=== PATIENT | female | born 2000 | race Caucasian/White ===

== ENCOUNTER → 2021-12-02 | Outpatient (CLI) ==
[~2021-12-02] MED LIST: AMOX500C2 PO; ARIP2TAB20 PO; ARIP2TAB3 PO; AZIT250T12 PO; BUPR-42 PO; CEPH500T PO; CIPR500T5 PO; CYCL10TA25; DOCU-143 PO; DOCU-239 PO; FLUT9.9S NSEACH; HYDR-34 PO; IBUP-1780 PO; MEDR150D6; METF-397 PO; METH4TAB10; MTP25TSR; NITR-65 PO; NITR-68 PO; NITR100C PO; NORG1TAB69 PO; ONDA4TAB11 PO; OXYC1TAB12 PO; OXYC1TAB87 PO; POLY119P5 PO; PRD20T PO; PREN1TAB19 PO; RISP0.5T65; SERT-413; SERT-414; SULF-222; VORT20TA PO
== END ==
LOC: LABNPT 14:21
PROVIDERS: ATTEND Obstetrics & Gynecology
DX: Z01.89 Encounter for other specified special examinations (principal)
CPT/HCPCS: 82570; 84156

== ENCOUNTER 2021-12-14 06:11 | Outpatient (CLI) | payer MEDICAID ==
[~2021-12-14] VITALS: Ht 162.6 cm; Wt 107.0 kg
[2021-12-14 06:20] VITALS: BP 131/75
[2021-12-14 06:30] VITALS: BP 131/75
--- NOTE | 2021-12-16 08:13 | Physician Query-Final Dx ---
Clinic Account Progress/Dx Physician Query: Please give diagnosis Include # weeks gestation Date of Service Dec 14, 2021 at 06:11 HEMAL,MayDec 16, 2021 08:12
== END 2021-12-14 07:13 | disposition home or self-care (01) ==
LOC: LDRP 06:11 → WSo 06:11
PROVIDERS: ATTEND Obstetrics & Gynecology
DX: O42.90 Premature rupture of membranes, unspecified as to length of time between rupture and onset of labor, unspecified weeks of gestation (principal); Z3A.00 Weeks of gestation of pregnancy not specified
CPT/HCPCS: 99213

== ENCOUNTER 2021-12-17 14:19 | Outpatient (CLI) | payer MEDICAID ==
[~2021-12-17] VITALS: Ht 162.6 cm; Wt 106.2 kg
[2021-12-17 14:49] VITALS: BP 105/64
[2021-12-17 14:50] LABS: BILIRUBIN,URINE NEGATIVE (NEGATIVE); CLARITY,URINE CLEAR; COLOR,URINE YELLOW; GLUCOSE, URINE (UA) NEGATIVE (NEGATIVE); KETONES,URINE NEGATIVE (NEGATIVE); LEUKOCYTE ESTERASE ,URINE NEGATIVE (NEGATIVE); NITRITE,URINE NEGATIVE (NEGATIVE); PROTEIN,URINE NEGATIVE (NEGATIVE)
[2021-12-17 15:01] LABS: BACTERIA,URINE MODERATE /HPF
--- NOTE | 2021-12-18 08:42 | Physician Query-Final Dx ---
12/18/21 0842: Clinic Account Progress/Dx Physician Query: Please give diagnosis Please include # weeks gestation Date of Service Dec 17, 2021 at 14:19 KI MCCLAIN MD 12/18/21 1104: Clinic Account Progress/Dx DIAGNOSIS: Diagnosis False labor 28 weeks gestation ,MayDec 18, 2021 08:42 KI MCCLAIN MD Dec 18, 2021 11:04
== END 2021-12-17 16:18 | disposition home or self-care (01) ==
LOC: WSo 14:19 → LDRP 14:23 → WSo 16:18
PROVIDERS: ATTEND Obstetrics & Gynecology
DX: O47.03 False labor before 37 completed weeks of gestation, third trimester (principal); Z3A.28 28 weeks gestation of pregnancy
CPT/HCPCS: 81000; 87088

== ENCOUNTER 2022-01-26 13:04 | Outpatient (CLI) | payer BC, MEDICAID ==
[~2022-01-26] VITALS: Ht 166 cm; Wt 110.7 kg
[2022-01-26 13:38] VITALS: BP 125/60
[2022-01-26 13:40] LABS: BILIRUBIN,URINE NEGATIVE (NEGATIVE); CLARITY,URINE CLEAR; COLOR,URINE YELLOW; GLUCOSE, URINE (UA) NEGATIVE (NEGATIVE); KETONES,URINE NEGATIVE (NEGATIVE); LEUKOCYTE ESTERASE ,URINE TRACE (NEGATIVE); NITRITE,URINE NEGATIVE (NEGATIVE); PH,URINE 7.5 (5-9); PROTEIN,URINE NEGATIVE (NEGATIVE)
[2022-01-26 13:49] LABS: BACTERIA,URINE FEW /HPF; SQUAMOUS EPITHELIAL CELL,UR 0-2 /HPF; WBC,URINE RARE /HPF
[2022-01-26 13:55] VITALS: BP 125/60
[2022-01-26 13:56] VITALS: BP 125/60
[2022-01-26 14:27] VITALS: BP 125/60
[2022-01-26 14:45] VITALS: BP 125/60
--- NOTE | 2022-01-27 08:12 | Physician Query-Final Dx ---
,01/27/22 0812: Clinic Account Progress/Dx Physician Query: Please give diagnosis Please include # weeks gestation Date of Service Jan 26, 2022 at 13:04 KI MCCLAIN MD 01/27/222000: Clinic Account Progress/Dx DIAGNOSIS: Diagnosis 34 weeks with false labor ,MayJan 27, 2022 08:12 KI MCCLAIN MD Jan 27, 2022 20:01
== END 2022-01-26 14:45 | disposition home or self-care (01) ==
LOC: LDRP 13:04 → WSo 13:04
PROVIDERS: ATTEND Obstetrics & Gynecology
DX: O47.03 False labor before 37 completed weeks of gestation, third trimester (principal); Z3A.34 34 weeks gestation of pregnancy
CPT/HCPCS: 81000; 99213

== ENCOUNTER 2022-02-03 12:17 | Emergency (ER) | payer BC, MEDICAID ==
[~2022-02-03] VITALS: Ht 162 cm; Wt 110.2 kg
--- NOTE | 2022-02-03 12:53 | ED Integumentary General ---
General Chief Complaint: Skin/Wound Problems Stated Complaint: CYST ON LOW BACK Nursing Triage Note: PT PRESENTS TO ED VIA POV FROM HOME WITH COMPLAINTS OF POSSIBLE CYST ON TAILBONE. PT REPORTS SHE FIRST NOTICED IT A WEEK AND A HALF AGO. Source: patient Exam Limitations: no limitations History of Present Illness Date Seen by Provider: Feb 03, 2022 Time Seen by Provider: 12:45 Initial Comments Patient is a 21 yo F who presents to the ED with swelling and pain to her gluteal cleft that began 1.5 weeks ago and has progressively worsened since that time. She denies any drainage from the area. Denies any fever. She is 8 months . She has not had any abdominal cramping or vaginal bleeding/drainage. She denies any h/o similar symptoms in the past Timing/Duration: week, getting worse Severity: moderate Allergies and Home Medications Allergies Coded Allergies: cefdinir (Verified Allergy, Intermediate, HIVES, 12/04/21) Patient Home Medication List Home Medication List Reviewed: Yes Amoxicillin/Potassium Clav (Amox Tr-K Clv 875-125 mg Tab) 875 Mg-125 Mg Tablet, 1 EACH PO BID Prescribed by: Murali Keller on 02/03/22 1344 Vit/Iron Fumarate/FA ( Vitamins Tablet) 28 Mg Iron-800 Mcg Tablet, 1 EACH PO DAILY, (Reported) Entered as Reported by: OTIS PRATT on 11/01/21 1124 Review of Systems Review of Systems Constitutional: no symptoms reported EENTM: no symptoms reported Respiratory: no symptoms reported Cardiovascular: no symptoms reported Gastrointestinal: no symptoms reported Expected Date of Delivery: Mar 09, 2022 Musculoskeletal: no symptoms reported Skin: see HPI Past Kaubpbn-Qcullc-Kybgxc Hx Patient Social History Tobacco Use?: No Substance use?: No Alcohol Use?: No Pt feels they are or have been: No Immunizations Up To Date PED Vaccines UTD: Yes First/Initial COVID19 Vaccinat: no Second COVID19 Vaccination Panchito: no Third COVID19 Vaccination Date: no Seasonal Allergies Seasonal Allergies: No Past Medical History Surgery/Hospitalization HX: RIGHT KNEE SCOPEC-section 05/2019, Surgeries: Yes Adenoidectomy, Bladder Surgery, Section, Gallbladder, Orthopedic, Tonsillectomy Respiratory: No Cardiac: No Neurological: No Expected Date of Delivery: Mar 09, 2022 Reproductive Disorders: Yes (DUB) Female Reproductive Disorders: Denies, Menstrual Problems, Polycystic Ovarian Dis Sexually Transmitted Disease: No HIV/AIDS: No Genitourinary: No Gastrointestinal: Yes (S/P CHOLECYSTECTOMY) Gall Bladder Disease Musculoskeletal: Yes (RIGHT KNEE SCOPE) Endocrine: No HEENT: Yes (GLASSES; T&A; ADENOIDECTOMY) Loss of Vision: Denies Hearing Impairment: Denies Cancer: No Psychosocial: Yes Depression Integumentary: No Blood Disorders: No Adverse Reaction/Blood Tranf: No (N/A) Family Medical History No Pertinent Family Hx, Heart Disease, DVT/PE PAST SURGICAL HISTORY: -RIGHT KNEE SCOPE - 05/12/19 -HYSTEROSCOPY WITH D&C FOR DUB--01/06/20 -CHILECYSTECTOMY -TONSILLECTOMY/ADENOIDECTOMY -WISDOM TEETH -URETHRAL DILATION X 2 Physical Exam Vital Signs Vital Signs - First Documented 02/03/22 12:28 Temp 36.7 Pulse 130 Resp 18 B/P (MAP) 133/81 (98) Pulse Ox 97 Capillary Refill : Less Than 3 Seconds General Appearance: WD/WN, no apparent distress HEENT: PERRL/EOMI, normal ENT inspection Neck: non-tender, full range of motion Cardiovascular: regular rate, rhythm Respiratory: chest non-tender, lungs clear, normal breath sounds Gastrointestinal: normal bowel sounds, non tender, soft Skin Problem Character: abscess Procedures/Interventions I&D : Site: superior gluteal cleft/superomedial right buttock Blade Size: 11 I & D Procedure: betadine prep Progress Wound was anesthetized with 2% lidocaine with epi after cleaning the skin with alcohol. Betadine was then applied and the maximal area of fluctuance was incised with an #11 blade. A large amount of purulence was expressed. The wound was explored with curved hemostats and loculation were broke up. The incision was extended superiorly 0.5 cm for a total incision length of 1.5 cm. This allowed further expression of purulence. The induration was greatly reduced at the conclusion of the procedure. I elected to not pack the wound. Patient tolerated well. Progress/Results/Core Measures Results/Orders My Orders Orders - MURALI KELLER APRN Lidocaine/Epi 2% 1:100,000 (Xylocaine/Ep (02/03/22 13:15) Lidocaine/Epi Mpf 2% 1:200,000 (Xylocain (02/03/22 13:11) Medications Given in ED Current Medications Medications Dose Ordered Sig/Hermelinda Route Start Time Stop Time Status Last Admin Dose Admin Lidocaine/ Epinephrine 20 ml ONCE ONCE INJ 02/03/22 13:15 02/03/22 13:16 DC 02/03/22 13:21 20 ML Vital Signs/I&O 02/03/22 02/03/22 12:28 13:46 Temp 36.7 Pulse 130 125 Resp 18 18 B/P (MAP) 133/81 (98) 139/90 Pulse Ox 97 99 Blood Pressure Mean: 98 Progress Progress Note : Progress Note Patient is nontoxic and well hydrated on exam. Pt has a pilonidal cyst noted to her superior gluteal cleft with concurrent abscess. This was incised and drained as noted separately. Discussed use of sitz baths to promote further drainage. Follow-up with general surgery for discussion of need for excision. Return precautions for urgent symptomology discussed. Patient verbalized understanding, Departure Impression Primary Impression: Pilonidal cyst with abscess Disposition: 01 HOME, SELF-CARE Condition: Improved Departure-Patient Inst. Decision time for Depature: 13:40 Referrals: KI MCCLAIN MD (PCP/Family) Primary Care Physician WHITNEY MARIE MD Patient Instructions: Abscess Incision and Drainage ED, Pilonidal Cyst (DC) Scripts Amoxicillin/Potassium Clav (Amox Tr-K Clv 875-125 mg Tab) 875 Mg-125 Mg Tablet 1 EACH PO BID for 5 Days, #10 TAB Prov: MURALI KELLER APRN 02/03/22 MURALI KELLER APRN Feb 03, 2022 12:53
[2022-02-03] MEDS ORDERED: LIDOCAINE/EPI 2% 1:200,00 (XYLOCAINE) 10 ML VIAL ONE (13:11)
[2022-02-03] MEDS ORDERED: LIDOCAINE/EPI 2% 1:100,00 (XYLOCAINE) 20 ML VIAL INJ ONE (13:15)
[2022-02-03] MEDS ORDERED: AMOX1TAB12 PO (13:44)
[2022-02-03 13:46] VITALS: BP 139/90
== END 2022-02-03 13:46 | disposition home or self-care (01) ==
LOC: EDUNIT# 12:17 → ER 12:18
DX: O99.713 Diseases of the skin and subcutaneous tissue complicating pregnancy, third trimester (principal); L05.01 Pilonidal cyst with abscess; Z3A.00 Weeks of gestation of pregnancy not specified; Z28.310 Unvaccinated for COVID-19

== ENCOUNTER 2022-02-10 15:58 | Observation (INO) | payer BC, MEDICAID ==
[~2022-02-10] VITALS: Ht 162.6 cm; Wt 111.0 kg
[~2022-02-10 15:58] MED LIST changes: +AMOX1TAB12 PO
[2022-02-10] MEDS ORDERED: D5 LR IV SOLUTION 1,000 ML IV ONE ×2 (16:08→16:15)
[2022-02-10 16:16] VITALS: BP 137/74
[2022-02-10] MEDS: CALCIUM CARBONATE 500 MG (TUMS) TAB.CHEW PO PRN ×2 (17:16→22:37)
[2022-02-10] MEDS: D5 LR IV SOLUTION 1,000 ML IV SCH (18:25)
[2022-02-10] MEDS ORDERED: BETAMETHASONE ACE/NA PHOS 6 MG/ML (CELESTONE SOLUSPAN) ONE (18:27)
[2022-02-10] MEDS: BETAMETHASONE ACE/NA PHOS 6 MG/ML (CELESTONE SOLUSPAN) IM SCH (18:30)
[2022-02-10] MEDS ORDERED: ACETAMINOPHEN 500 MG TAB (TYLENOL) PO PRN ×2 (20:15→21:15)
[2022-02-10] MEDS ORDERED: ACETAMINOPHEN 500 MG TAB (TYLENOL) ONE (20:15)
--- NOTE | 2022-02-10 20:30 | History & Physical ---
History and Physical Date Seen by Provider: Feb 10, 2022 Time Seen by Provider: 20:25 This patient is a 21-year-old 2 para 1 female currently at 36-1/7 weeks gestation who was sent to labor and delivery from my office due to labor. She had called complaining of increasing back pain and pressure. Evaluation in my clinic with an NST shows contractions every 2 minutes. Her cervix was 1 cm dilated and was thick. Because of the relatively regular contractions and increasing pain with patient was sent to labor and delivery for further evaluation. During the period of evaluation here labor and delivery patient was continued to contract and her cervix changed to 3 cm. After hydration and observation her contractions had spaced out and her cervix changed no further. It is of note that this patient has a GBS culture that was positive and she is also had a previous .In addition last week patient had pain and swelling over the apex of the intergluteal fold was found to have a large pilonidal abscess which was treated by general surgery with I&D. Patient has b een on antibiotics for that and reports minimal drainage or discharge and no pain in that area Patient denied rupture membranes or bleeding. She did have notable discharge in clinic that was determined to be due to a fungal vaginitis for which she was pr escribed Diflucan. Patient's allergies are to cephalosporins Medications are vitamins Medical social and surgical histories are per the antepartum record HEENT exam is normal Neck is supple no lymphadenopathy no thyromegaly abdomen is gravid soft nontender nondistended Extremities show no clubbing cyanosis. There is no Homans' sign. Cervical exam in my clinic earlier today showed a cervix 1 cm dilated and thick according to my nurse Labor delivery nurse indicates the cervix is now 3 cm dilated 60% effaced with a very high station monitor shows occasional contractions with a normal heart heart rate pattern/category 1 pattern Assessment and plan 36-1/7 weeks gestation with labor and a previous . Contractions seem to have tapered off and spaced out although she has demonstrated cervical change. We have given her empirically a single dose of betamethasone with plan to repeat that tomorrow. We will continue observation through the night for any signs symptoms or indications of progress in labor. Should she enter active labor we would entertain proceeding with delivery 36 weeks gestation with labor Allergies and Home Medications Allergies Coded Allergies: cefdinir (Verified Allergy, Intermediate, HIVES, 12/04/21) Patient Home Medication List Home Medication List Reviewed: Yes Vit/Iron Fumarate/FA ( Vitamins Tablet) 28 Mg Iron-800 Mcg Tablet, 1 EACH PO DAILY, (Reported) Entered as Reported by: OTIS PRATT on 11/01/21 1124 Last Action: Reviewed Discontinued Medications Amoxicillin/Potassium Clav (Amox Tr-K Clv 875-125 mg Tab) 875 Mg-125 Mg Tablet, 1 EACH PO BID Discontinued Reason: No Longer Taking Prescribed by: Murali Keller on 02/03/22 1344 Last Action: Discontinued KI MCCLAIN MD Feb 10, 2022 20:30
[2022-02-10 22:18] LABS: EOSINOPHILS % (AUTO) 0 % (0-10); HEMATOCRIT 31 % (35-52)
[2022-02-10 22:20] LABS: BASOPHILS % (AUTO) 0 % (0-10); HEMOGLOBIN 9.9 g/dL (11.5-16.0); LYMPHOCYTES # (AUTO) 1.5 10^3/uL (1.0-4.0); LYMPHOCYTES % (AUTO) 10 % (12-44); MEAN CORPUSCULAR HEMOGLOBIN 28 pg (25-34); MEAN CORPUSCULAR HGB CONC 32 g/dL (32-36); MEAN CORPUSCULAR VOLUME 89 fL (80-99); MEAN PLATELET VOLUME 9.1 fL (9.0-12.2); MONOCYTES # (AUTO) 0.4 10^3/uL (0.0-1.0); MONOCYTES % (AUTO) 3 % (0-12); NEUTROPHILS # (AUTO) 12.6 10^3/uL (1.8-7.8); NEUTROPHILS % (AUTO) 86 % (42-75); PLATELET COUNT 182 10^3/uL (130-400); WHITE BLOOD COUNT 14.7 10^3/uL (4.3-11.0)
[2022-02-10 22:30] VITALS: BP 121/58
[2022-02-10 22:36] LABS: LYMPHOCYTES % (MANUAL) 14 %; MONOCYTES % (MANUAL) 2 %; NEUTROPHILS % (MANUAL) 84 %; POLYCHROMASIA MODERATE
[2022-02-10 22:37] LABS: ELLIPT/OVALOCYTES SLIGHT
[2022-02-11] MEDS: D5 LR IV SOLUTION 1,000 ML IV SCH ×2 (01:05→09:07)
[2022-02-11 03:04] VITALS: BP 127/75
[2022-02-11] MEDS: CALCIUM CARBONATE 500 MG (TUMS) TAB.CHEW PO PRN ×2 (03:04→14:13)
--- NOTE | 2022-02-11 07:59 | Progress Note ---
Standard Progress Note Progress Notes/Assess & Plan Date Seen by a Provider: Feb 11, 2022 Time Seen by a Provider: 07:56 Progress/Assessment & Plan This patient is a 21-year-old 2 para 2 female who was admitted last evening from the office with labor. She dilated her cervix from initial exam of 1 to 3 cm. Through the night now she has dilated to 3-1/2. She continues to contract intermittently. She has continued to have some bloody show. Currently she denies contractions but does complain of the persistent low back pain and pelvic pressure. She does feel baby moving. She denies rupture membranes. She has no nausea or vomiting. She is afebrile. Laboratory Tests Test 02/10/22 22:13 Range/Units White Blood Count 14.7 H 4.3-11.0 10^3/uL Red Blood Count 3.48 L 3.80-5.11 10^6/uL Hemoglobin 9.9 L 11.5-16.0 g/dL Hematocrit 31 L 35-52 % Mean Corpuscular Volume 89 80-99 fL Mean Corpuscular Hemoglobin 28 25-34 pg Mean Corpuscular Hemoglobin Concent 32 32-36 g/dL Red Cell Distribution Width 13.8 10.0-14.5 % Platelet Count 182 130-400 10^3/uL Mean Platelet Volume 9.1 9.0-12.2 fL Immature Granulocyte % (Auto) 1 % Neutrophils (%) (Auto) 86 H 42-75 % Lymphocytes (%) (Auto) 10 L 12-44 % Monocytes (%) (Auto) 3 0-12 % Eosinophils (%) (Auto) 0 0-10 % Basophils (%) (Auto) 0 0-10 % Neutrophils # (Auto) 12.6 H 1.8-7.8 10^3/uL Lymphocytes # (Auto) 1.5 1.0-4.0 10^3/uL Monocytes # (Auto) 0.4 0.0-1.0 10^3/uL Eosinophils # (Auto) 0.0 0.0-0.3 10^3/uL Basophils # (Auto) 0.0 0.0-0.1 10^3/uL Immature Granulocyte # (Auto) 0.2 H 0.0-0.1 10^3/uL Neutrophils % (Manual) 84 % Lymphocytes % (Manual) 14 % Monocytes % (Manual) 2 % Percent Immature Platelet Fraction 4.8 0.0-7.6 % Polychromasia MODERATE Elliptocytes SLIGHT Vital Signs Date Time Temp Pulse Resp B/P (MAP) Pulse Ox O2 Delivery O2 Flow Rate FiO2 02/11/22 03:04 36.3 97 20 127/75 (92) 97 Room Air 02/10/22 22:30 36.5 106 18 121/58 (79) 97 Room Air 02/10/22 16:16 36.8 105 18 137/74 98 Room Air I & O 02/11/22 07:00 Intake Total 2000 ml Balance 2000 ml The abdomen is benign. Fundus is soft nontender. There is no guarding rebound or rigidity. Extremities show no clubbing no cyanosis no Homans' sign. There are some pretibial pitting edema Pelvic exam was deferred to the labor and delivery nurses last exam last evening showed a cervix 3-1/2 cm dilated which represented a further change from her initial evaluation in labor and delivery and a significant change from the 1 cm she was in my office yesterday. Assessment and plan 36 weeks gestation with labor previous and with vaginal bleeding may be related to her dilation we will obtain ultrasound evaluate for placental abruption. Patient received a first dose of betamethasone last evening we will plan on her second dose today. Would not plan on tocolyse is at 36+ weeks gestation if there is indication for delivery for maternal or indications and we likely would proceed with delivery. We will reevaluate later today KI MCCLAIN MD Feb 11, 2022 07:59
[2022-02-11 09:00] VITALS: BP 111/59
[2022-02-11 12:30] VITALS: BP 124/68
--- NOTE | 2022-02-11 12:35 | Diagnostic Imaging Report ---
INDICATION: labor at 36 weeks 2 days gestational age. TECHNIQUE: Multiple real-time grayscale images were obtained over the gravid uterus. COMPARISON: None FINDINGS: Intrauterine currently in a cephalic presentation. Normal amount of amniotic fluid, index at 12.7 cm. Placenta posterior without previa. Biometrical measurements are as follows: Biparietal 9.28 cm, age 37 weeks 6 days. Head circumference 31.74 cm, age 35 weeks 5 days. Abdominal circumference 32.56 cm, age 36 weeks 4 days. Femur length 6.93 cm, age 35 weeks 4 days. Sonographic estimate age: 36 weeks 3 days. Sonographic estimated date of delivery: 03/08/2022. Estimated Weight: 2900 gm (+/- 423 gm). LMP percentile: 53%. heart rate: 122 beats per minute. number: 1 of 1. Biophysical Profile Scoring: breathin Body movement: 2 tone: 2 Amniotic fluid: 2 Total BPP Score: 8/8 IMPRESSION: 1. Single intrauterine patency, currently in a cephalic orientation, sonographic estimated age 36 weeks 3 days for an estimated date of delivery 03/08/2022. 2. Normal biophysical profile scoring 8 of 8. Dictated by: Dictated on workstation # [id number]
[2022-02-11 16:00] VITALS: BP 125/58
[2022-02-11] MEDS: BETAMETHASONE ACE/NA PHOS 6 MG/ML (CELESTONE SOLUSPAN) IM SCH (16:37)
--- NOTE | 2022-02-11 17:20 | Progress Note ---
Standard Progress Note Progress Notes/Assess & Plan Date Seen by a Provider: Feb 11, 2022 Time Seen by a Provider: 17:18 Progress/Assessment & Plan This patient is a 21-year-old 2 para 2 female who was admitted last evening from the office with labor. She dilated her cervix from initial exam of 1 to 3 cm. Through the night now she has dilated to 3-1/2. She continues to contract intermittently. She has continued to have some bloody show. Currently she denies contractions but does complain of the persistent low back pain and pelvic pressure. She does feel baby moving. She denies rupture membranes. She has no nausea or vomiting. She is afebrile. Laboratory Tests Test 02/10/22 22:13 Range/Units White Blood Count 14.7 H 4.3-11.0 10^3/uL Red Blood Count 3.48 L 3.80-5.11 10^6/uL Hemoglobin 9.9 L 11.5-16.0 g/dL Hematocrit 31 L 35-52 % Mean Corpuscular Volume 89 80-99 fL Mean Corpuscular Hemoglobin 28 25-34 pg Mean Corpuscular Hemoglobin Concent 32 32-36 g/dL Red Cell Distribution Width 13.8 10.0-14.5 % Platelet Count 182 130-400 10^3/uL Mean Platelet Volume 9.1 9.0-12.2 fL Immature Granulocyte % (Auto) 1 % Neutrophils (%) (Auto) 86 H 42-75 % Lymphocytes (%) (Auto) 10 L 12-44 % Monocytes (%) (Auto) 3 0-12 % Eosinophils (%) (Auto) 0 0-10 % Basophils (%) (Auto) 0 0-10 % Neutrophils # (Auto) 12.6 H 1.8-7.8 10^3/uL Lymphocytes # (Auto) 1.5 1.0-4.0 10^3/uL Monocytes # (Auto) 0.4 0.0-1.0 10^3/uL Eosinophils # (Auto) 0.0 0.0-0.3 10^3/uL Basophils # (Auto) 0.0 0.0-0.1 10^3/uL Immature Granulocyte # (Auto) 0.2 H 0.0-0.1 10^3/uL Neutrophils % (Manual) 84 % Lymphocytes % (Manual) 14 % Monocytes % (Manual) 2 % Percent Immature Platelet Fraction 4.8 0.0-7.6 % Polychromasia MODERATE Elliptocytes SLIGHT Vital Signs Date Time Temp Pulse Resp B/P (MAP) Pulse Ox O2 Delivery O2 Flow Rate FiO2 02/11/22 03:04 36.3 97 20 127/75 (92) 97 Room Air 02/10/22 22:30 36.5 106 18 121/58 (79) 97 Room Air 02/10/22 16:16 36.8 105 18 137/74 98 Room Air I & O 02/11/22 07:00 Intake Total 2000 ml Balance 2000 ml The abdomen is benign. Fundus is soft nontender. There is no guarding rebound or rigidity. Extremities show no clubbing no cyanosis no Homans' sign. There are some pretibial pitting edema Pelvic exam was deferred to the labor and delivery nurses last exam last evening showed a cervix 3-1/2 cm dilated which represented a further change from her initial evaluation in labor and delivery and a significant change from the 1 cm she was in my office yesterday. Assessment and plan 36 weeks gestation with labor previous and with vaginal bleeding may be related to her dilation we will obtain ultrasound evaluate for placental abruption. Patient received a first dose of betamethasone last evening we will plan on her second dose today. Would not plan on tocolyse is at 36+ weeks gestation if there is indication for delivery for maternal or indications and we likely would proceed with delivery. We will reevaluate later today This patient is without complaint. She has been stable through the day. She reports having continued low back pain that has been present almost throughout h er . She denies contractions, denies rupture membranes, denies bleeding.She reports that the pelvic pain is slightly decreased. She does feel baby moving. NST was done and showed no contractions with a category 1 heart rate tracing. Ultrasound was performed that showed a normal with no evidence of placental abruption and no overt abnormal findings Patient cervical exam through the day is unchanged she is about 3-1/2 cm dilated and this represents no change since last evening. At this point we discussed discharge home with follow-up in clinic with strict precautions for return to clinic for signs symptoms indication of labor/rupture membranes/bleeding Vital Signs Date Time Temp Pulse Resp B/P (MAP) Pulse Ox O2 Delivery O2 Flow Rate FiO2 02/11/22 16:00 36.4 111 18 125/58 (80) 99 Room Air 02/11/22 12:30 36.3 102 18 124/68 (86) 99 Room Air 02/11/22 09:00 36.3 80 18 111/59 (76) 98 Room Air 02/11/22 03:04 36.3 97 20 127/75 (92) 97 Room Air 02/10/22 22:30 36.5 106 18 121/58 (79) 97 Room Air I & O 02/11/22 07:00 Intake Total 2000 ml Balance 2000 ml Vital signs are stable. Patient is afebrile. Physical exam is deferred Assessment and plan 36+ weeks gestation with a previous and with labor that has now resolved. Patient has received both doses of betamethasone and has been given return to clinic precautions and instructions. We will allow discharge home with follow-up in clinic Final Diagnosis 36 weeks with labor KI MCCLAIN MD Feb 11, 2022 17:20
--- NOTE | 2022-02-11 17:22 | Discharge Inst-Surgical ---
Discharge Inst-Surgical Depart Medication/Instructions New, Converted or Re-Newed RX: Other Consults/Follow Up Patient Instructions: As directed Orders & Referrals Return to clinic as scheduled for follow-up will be next week. Return to clinic promptly for any signs symptoms indications of labor including increased vaginal discharge and/or bleeding. Continue vitamins Activity Activity as Tolerated: Yes Diet Discharge Diet: No Restrictions KI MCCLAIN MD Feb 11, 2022 17:22
[2022-02-12] MEDS ORDERED: DOCU100C37 PO (14:42)
[2022-02-12] MEDS ORDERED: OXYC1TAB12 PO (14:42)
[2022-02-12] MEDS ORDERED: IBUP-1780 PO (14:42)
== END 2022-02-11 17:50 | disposition home or self-care (01) ==
LOC: WSo 15:58 → LDRP 15:58 → WSo 19:00
PROVIDERS: ADMIT Obstetrics & Gynecology; ATTEND Obstetrics & Gynecology
DX: O60.03 Preterm labor without delivery, third trimester (principal); O99.820 Streptococcus B carrier state complicating pregnancy; Z3A.36 36 weeks gestation of pregnancy; O34.211 Maternal care for low transverse scar from previous cesarean delivery
CPT/HCPCS: 76805; 76819; 85007; 85027; 96360; 96361 ×2; 96372 ×2; G0378; G0379; 36415

== ENCOUNTER 2022-02-12 11:55 | Inpatient (IN) | payer BC, MEDICAID ==
[~2022-02-12] VITALS: Ht 162.5 cm; Wt 111.0 kg
[2022-02-12] VITALS (13 sets, daily range): BP systolic 107–140; BP diastolic 55–96
[2022-02-12 12:35] LABS: BILIRUBIN,URINE NEGATIVE (NEGATIVE); CLARITY,URINE CLEAR; COLOR,URINE YELLOW; GLUCOSE, URINE (UA) NEGATIVE (NEGATIVE); KETONES,URINE NEGATIVE (NEGATIVE); LEUKOCYTE ESTERASE ,URINE NEGATIVE (NEGATIVE); NITRITE,URINE NEGATIVE (NEGATIVE); PROTEIN,URINE NEGATIVE (NEGATIVE)
[2022-02-12 13:09] LABS: BACTERIA,URINE FEW /HPF; RBC,URINE 0-2 /HPF; WBC,URINE 0-2 /HPF
[2022-02-12] MEDS: LACTATED RINGERS 1,000 ML IV PRN ×2 (13:15→14:03)
[2022-02-12] MEDS ORDERED: LACTATED RINGERS 1,000 ML IV PRN (13:15)
[2022-02-12] MEDS ORDERED: METOCLOPRAMIDE INJ 10 MG/2 ML (REGLAN) IV ONE (13:15)
[2022-02-12] MEDS ORDERED: CATHETER FLUSH 10 ML SYR IV PRN (13:15)
[2022-02-12] MEDS ORDERED: CITRIC ACID/SOB CIT (BICITRA) 30 ML UDC PO ONE (13:15)
[2022-02-12] MEDS ORDERED: FAMOTIDINE 20MG/2ML IV (PEPCID) IV ONE (13:15)
[2022-02-12 13:29] LABS: BASOPHILS % (AUTO) 0 % (0-10); EOSINOPHILS % (AUTO) 0 % (0-10); HEMATOCRIT 31 % (35-52); HEMOGLOBIN 9.8 g/dL (11.5-16.0); LYMPHOCYTES % (AUTO) 12 % (12-44); MEAN CORPUSCULAR HEMOGLOBIN 28 pg (25-34); MEAN CORPUSCULAR HGB CONC 32 g/dL (32-36); MEAN CORPUSCULAR VOLUME 89 fL (80-99); MEAN PLATELET VOLUME 8.5 fL (9.0-12.2); MONOCYTES # (AUTO) 1.4 10^3/uL (0.0-1.0); MONOCYTES % (AUTO) 8 % (0-12); NEUTROPHILS # (AUTO) 12.7 10^3/uL (1.8-7.8); NEUTROPHILS % (AUTO) 76 % (42-75); PLATELET COUNT 296 10^3/uL (130-400); WHITE BLOOD COUNT 16.7 10^3/uL (4.3-11.0)
[2022-02-12] MEDS ORDERED: BUTORPHANOL INJ 2 MG/ML (STADOL) VIAL ONE (13:44)
[2022-02-12] MEDS ORDERED: TERBUTALINE INJ 1 MG/ML (BRETHINE) AMP ONE (13:44)
[2022-02-12] MEDS ORDERED: TERBUTALINE INJ 1 MG/ML (BRETHINE) AMP SC ONE (13:45)
[2022-02-12] MEDS ORDERED: BUTORPHANOL INJ 2 MG/ML (STADOL) VIAL IV ONE (13:45)
[2022-02-12 13:55] LABS: ANISOCYTOSIS SLIGHT; BAND NEUTROPHILS 5 %; LYMPHOCYTES % (MANUAL) 18 %; METAMYELOCYTES % 1 %; MONOCYTES % (MANUAL) 9 %; MYELOCYTES % 1 %; NEUTROPHILS % (MANUAL) 66 %; POLYCHROMASIA SLIGHT
[2022-02-12] MEDS ORDERED: ROPIVACAINE 5MG/ML 30ML VIAL ONE (13:59)
[2022-02-12] MEDS ORDERED: fentaNYL INJ 100 MCG/2 ML AMP ONE (13:59)
[2022-02-12] MEDS ORDERED: OXYTOCIN PRE-MIX DRIP 1,000 ML IV ONE (13:59)
[2022-02-12 14:01] LABS: ALBUMIN 3.1 GM/DL (3.2-4.5); BILIRUBIN,TOTAL 0.2 MG/DL (0.1-1.0); CALCIUM 8.6 MG/DL (8.5-10.1); CREATININE SERUM 0.64 MG/DL (0.60-1.30); TOTAL PROTEIN 6.4 GM/DL (6.4-8.2)
[2022-02-12] MEDS ORDERED: CLINDAMYCIN 900 MG/50 ML IVPB 50 ML IV ONE ×2 (14:27→14:30)
[2022-02-12] MEDS ORDERED: D5 LR IV SOLUTION 1,000 ML IV SCH (14:30)
[2022-02-12] MEDS ORDERED: NALOXONE 0.4 MG/ML 1 ML (NARCAN) VIAL IV PRN (14:30)
[2022-02-12] MEDS ORDERED: TETANUS,DIPTH,PERTUSS P/F (BOOSTRIX) 0.5 ML VIAL IM ONE (14:30)
--- NOTE | 2022-02-12 14:37 | History & Physical ---
History and Physical Date Seen by Provider: Feb 12, 2022 Time Seen by Provider: 14:33 This patient is a 21-year-old 2 para 1 1 female currently at 36-3/7 weeks gestation. Her has been complicated by persistent back and pelvic pain.. Complicated by laborPatient was admitted for observation several days ago because of some cervical change that halted her contractions stop her pain resolved and she was allowed discharge home. She presented again today with complaint of severe right lower quadrant pain her cervix is 3 cm 80% right blood cell count is elevated her pain is way out of proportion to what she had before we have given terbutaline and Stadol for pain control. Decision made to proceed with delivery. Patient has had 2 doses of betamethasone earlier this week on Thursday and Thursday because of her labor. Patient denies rupture membranes has had some spotting or bleeding. Has had no other problems with this Allergies are to cephalosporins Medications are vitamins Medical social and surgical histories are per the antepartum record HEENT exam is normal Neck is supple no lymphadenopathy no thyromegaly Abdomen is gravid soft Fundus is essentially nontender, The abdomen is nondistended There is marked tenderness in the right lower quadrant is noticed guarding there may be some rebound Extremities show no clubbing cyanosis. There is no Homans' sign. Pelvic exam is deferred Assessment and plan 36+ week with history of labor and previous admitted with severe right lower and lower abdominal pain out of proportion to what she has experienced with her labor before. Her cervix is dilated 3 cm plus an 80%. She has received 2 doses of steroids we will just go ahead and proceed with now. We will assess for intra-abdominal pathology that might explain her pain such as peritonitis or appendicitis 36 weeks gestation with labor and previously 6 Allergies and Home Medications Allergies Coded Allergies: cefdinir (Verified Allergy, Intermediate, HIVES, 12/04/21) Patient Home Medication List Home Medication List Reviewed: Yes Vit/Iron Fumarate/FA ( Vitamins Tablet) 28 Mg Iron-800 Mcg Tablet, 1 EACH PO DAILY, (Reported) Entered as Reported by: OTIS PRATT on 11/01/21 1124 Last Action: Reviewed Discontinued Medications Amoxicillin/Potassium Clav (Amox Tr-K Clv 875-125 mg Tab) 875 Mg-125 Mg Tablet, 1 EACH PO BID Discontinued Reason: No Longer Taking Prescribed by: Murali Keller on 02/03/22 1344 KI MCCLAIN MD Feb 12, 2022 14:37
[2022-02-12] MEDS ORDERED: OXYC1TAB12 PO (14:42)
[2022-02-12] MEDS ORDERED: DOCU100C37 PO (14:42)
[2022-02-12] MEDS ORDERED: IBUP-1780 PO (14:42)
--- NOTE | 2022-02-12 14:44 | Discharge Inst-Surgical ---
Discharge Inst-Surgical Depart Medication/Instructions New, Converted or Re-Newed RX: Transmitted to Pharmacy Consults/Follow Up Patient Instructions: As directed Orders & Referrals Follow Up Appt: RTC 1 week for incision check. Call to make follow up appt. for patient in 4 weeks. Wound Care: Remove swetha, apply benzoin and steri strips. Activity Per routine post instructions. Prescriptions for Percocet Motrin and Colace have been transmitted e lectronically to patient's pharmacy Diet as tolerated Patient may shower or tub bathe as desired. Continue home meds Activity Activity as Tolerated: No Diet Discharge Diet: No Restrictions KI MCCLAIN MD Feb 12, 2022 14:44
[2022-02-12] MEDS ORDERED: MEPERIDINE (DEMEROL) INJ 50 MG/ML IVP PRN (14:45)
[2022-02-12] MEDS ORDERED: PROMETHAZINE INJ 25 MG/ML (PHENERGAN) AMP IM PRN (14:45)
[2022-02-12] MEDS ORDERED: PHENYLEPHRINE 100 MCG/ML 10 ML (ANESTHESIA) SYR ONE (15:02)
[2022-02-12] MEDS ORDERED: MEPERIDINE (DEMEROL) INJ 50 MG/ML IM PRN (15:15)
[2022-02-12] MEDS ORDERED: ONDANSETRON 4 MG/2 ML (SDV) Z0FRAN ONE (15:39)
[2022-02-12] MEDS: KETOROLAC 30 MG/ML VIAL IV SCH ×2 (15:55→21:10)
[2022-02-12] MEDS ORDERED: KETOROLAC 30 MG/ML VIAL ONE (15:56)
[2022-02-12] MEDS: OXYTOCIN PRE-MIX DRIP 500 ML IV SCH ×2 (18:04→19:50)
[2022-02-12] MEDS: oxyCODONE/APAP 10/325MG (PERCOCET 10) TABLET PO PRN (18:52)
[2022-02-12] MEDS: DOCUSATE SODIUM 100 MG (COLACE) CAP PO SCH (21:10)
[2022-02-13 00:19] VITALS: BP 134/70
[2022-02-13] MEDS: oxyCODONE/APAP 10/325MG (PERCOCET 10) TABLET PO PRN ×4 (00:19→20:30)
[2022-02-13 03:16] VITALS: BP 135/80
[2022-02-13] MEDS: KETOROLAC 30 MG/ML VIAL IV SCH (03:16)
--- NOTE | 2022-02-13 07:49 | Progress Note ---
Standard Progress Note Progress Notes/Assess & Plan Date Seen by a Provider: Feb 13, 2022 Time Seen by a Provider: 07:48 Progress/Assessment & Plan This patient is without complaint. She is ambulating, voiding, tolerating oral intake well and has good pain control. Her preoperative pain is completely resolved. Vital Signs Date Time Temp Pulse Resp B/P (MAP) Pulse Ox O2 Delivery O2 Flow Rate FiO2 02/13/22 03:16 36.7 89 18 135/80 (98) 96 Room Air 02/13/22 00:19 36.3 101 18 134/70 (91) 97 Room Air 02/12/22 20:30 36.8 104 18 137/73 (94) 97 Room Air 02/12/22 16:45 Room Air 02/12/22 16:45 35.9 110 18 138/86 (103) 100 Room Air 02/12/22 16:38 17 138/75 (96) 98 Room Air 02/12/22 16:30 36.1 16 126/68 (87) 98 Room Air 02/12/22 16:30 Room Air 02/12/22 16:20 17 107/72 (84) 98 Room Air 02/12/22 16:15 Room Air 02/12/22 16:10 20 117/55 (75) 98 Room Air 02/12/22 16:00 20 126/61 (82) 98 Room Air 02/12/22 16:00 Room Air 02/12/22 15:50 19 122/63 (82) 98 Room Air 02/12/22 15:45 Room Air 02/12/22 15:45 36.7 18 111/59 (76) 98 Room Air 02/12/22 14:00 100 20 140/85 (103) 97 02/12/22 13:20 93 20 134/96 (109) 02/12/22 12:17 36.6 89 20 128/80 97 Room Air 02/12/22 12:10 36.6 100 20 98 Room Air I & O 02/13/22 07:00 Intake Total 3550 ml Output Total 2200 ml Balance 1350 ml Vital signs are stable. Patient is afebrile. The abdomen is benign. The fundus is firm below the umbilicus and nontender. Extremities show no clubbing or cyanosis. There is no Homans' sign. Assessment and plan Postoperative day #1 status post repeat delivery at 36+ weeks gestation. Patient is doing well will have routine convalescent care KI MCCLAIN MD Feb 13, 2022 07:49
[2022-02-13] MEDS ORDERED: IBUPROFEN 800 MG (MOTRIN) TAB PO ONE (08:26)
[2022-02-13] MEDS: DOCUSATE SODIUM 100 MG (COLACE) CAP PO SCH ×2 (08:28→20:30)
[2022-02-13] MEDS: IBUPROFEN 800 MG (MOTRIN) TAB PO SCH ×3 (08:28→19:08)
[2022-02-13 08:30] VITALS: BP 130/78
--- NOTE | 2022-02-13 14:08 | Anesthesia-Regional Post-Op ---
Regional Patient Condition Mental Status: Alert, Oriented x3 Circulation: Same as Pre-Op Headache: Absent Sensation: Full Recovery Motor Block: Absent Post Op Complications Complications None Follow Up Care/Instructions Patient Instructions None needed. Anesthesia/Patient Condition Patient is doing well, no complaints, stable vital signs, no apparent adverse anesthesia problems. No complications reported per nursing. RANDY STEWART DO Feb 13, 2022 14:08
[2022-02-13 14:30] VITALS: BP 128/79
--- NOTE | 2022-02-13 14:34 | OPERATIVE REPORT ---
DATE OF SERVICE: 02/12/2022 PREOPERATIVE DIAGNOSES: A 36 plus weeks' gestation with labor and previous . POSTOPERATIVE DIAGNOSES: A 36 plus weeks' gestation with labor and previous . OPERATIVE PROCEDURE: Repeat low transverse delivery of a viable female infant with Apgars of 8 and 9 at 1 and 5 minutes respectively, weight of 7 pounds 9 ounces. Cord blood pH of 7.24 and a time of 1513. OPERATIVE DESCRIPTION: With the patient in the supine position under satisfactory spinal analgesia, she was prepped and draped in the usual fashion for abdominal surgery. Martin catheter was placed in the urinary bladder. A repeat Pfannenstiel incision was made through skin with scalpel, the patient's abdomen entered in the usual manner. Bladder retractor placed in position. Clean scalpel was used to make a 4 cm hysterotomy incision transversely across the lower uterine segment. Clear fluid was released on hysterotomy. The incision was extended bluntly. Martinez forceps were applied to facilitate the delivery of a vigorous viable female . had Apgars and stats as noted above. The infant was bulb suctioned on delivery of the head and again on completion of delivery. Umbilical cord was doubly clamped and cut, and the infant passed to the pediatric nurse in attendance for delivery. Cord bloods were obtained. The placenta delivered spontaneously Russ. It was normal with 3-vessel cord. The uterus was exteriorized and interior wiped clean with a wet laparotomy sponge. Uterine incision was closed with a running locked suture of 2-0 Vicryl. Hemostasis was complete. The uterus was returned to abdominal cavity. The abdominal cavity was explored for abnormal condition due to the patient's severe pain. There was no evidence of peritonitis. The appendix was identified. It was a normal vermiform appendix. With sponge and needle counts correct and hemostasis assured at this point and no abnormal pathology evident, the anterior parietal peritoneum was closed with a running suture of 2-0 Vicryl. Rectus muscles were closed with that suture as well. The rectus fascia was closed with 2-0 Vicryl, subcutaneous tissue with 2-0 Vicryl and the skin was stapled. Sponge and needle counts were correct on completion of the procedure. Blood loss was around 800 mL. The patient tolerated the procedure well and was transferred to the recovery room in stable condition. The baby had remained at bedside. Job ID: [id number] DocumentID: [id number] Dictated Date: 02/13/2022 08:23:11 Helicopter Specialist Date: 02/13/2022 14:33:27 Dictated By: KI MCCLAIN MD
[2022-02-13 20:30] VITALS: BP 129/85
[2022-02-14 01:22] VITALS: BP 121/66
[2022-02-14] MEDS: oxyCODONE/APAP 10/325MG (PERCOCET 10) TABLET PO PRN (01:22)
[2022-02-14] MEDS: IBUPROFEN 800 MG (MOTRIN) TAB PO SCH ×2 (01:23→07:45)
[2022-02-14 08:09] VITALS: BP 130/71
[2022-02-14] MEDS: DOCUSATE SODIUM 100 MG (COLACE) CAP PO SCH (09:44)
--- NOTE | 2022-02-14 09:52 | Progress Note ---
Standard Progress Note Progress Notes/Assess & Plan Date Seen by a Provider: Feb 14, 2022 Time Seen by a Provider: 09:51 Progress/Assessment & Plan This patient is without complaint. She is ambulating, voiding, tolerating oral intake well and has good pain control. Her preoperative pain is completely resolved. Vital Signs Date Time Temp Pulse Resp B/P (MAP) Pulse Ox O2 Delivery O2 Flow Rate FiO2 02/13/22 03:16 36.7 89 18 135/80 (98) 96 Room Air 02/13/22 00:19 36.3 101 18 134/70 (91) 97 Room Air 02/12/22 20:30 36.8 104 18 137/73 (94) 97 Room Air 02/12/22 16:45 Room Air 02/12/22 16:45 35.9 110 18 138/86 (103) 100 Room Air 02/12/22 16:38 17 138/75 (96) 98 Room Air 02/12/22 16:30 36.1 16 126/68 (87) 98 Room Air 02/12/22 16:30 Room Air 02/12/22 16:20 17 107/72 (84) 98 Room Air 02/12/22 16:15 Room Air 02/12/22 16:10 20 117/55 (75) 98 Room Air 02/12/22 16:00 20 126/61 (82) 98 Room Air 02/12/22 16:00 Room Air 02/12/22 15:50 19 122/63 (82) 98 Room Air 02/12/22 15:45 Room Air 02/12/22 15:45 36.7 18 111/59 (76) 98 Room Air 02/12/22 14:00 100 20 140/85 (103) 97 02/12/22 13:20 93 20 134/96 (109) 02/12/22 12:17 36.6 89 20 128/80 97 Room Air 02/12/22 12:10 36.6 100 20 98 Room Air I & O 02/13/22 07:00 Intake Total 3550 ml Output Total 2200 ml Balance 1350 ml Vital signs are stable. Patient is afebrile. The abdomen is benign. The fundus is firm below the umbilicus and nontender. Extremities show no clubbing or cyanosis. There is no Homans' sign. Assessment and plan Postoperative day #1 status post repeat delivery at 36+ weeks gestation. Patient is doing well will have routine convalescent care February 14, 2022 Patient is without complaint. She is ambulating, voiding, tolerating oral intake well and has good pain control. Patient is requesting discharge home. Vital Signs Date Time Temp Pulse Resp B/P (MAP) Pulse Ox O2 Delivery O2 Flow Rate FiO2 02/14/22 08:09 36.6 111 18 130/71 (90) 98 Room Air 02/14/22 01:22 36.2 99 20 121/66 (84) 97 Room Air 02/13/22 20:30 36.6 97 20 129/85 (100) 99 Room Air 02/13/22 14:30 35.7 85 18 128/79 (95) 97 Room Air Vital signs are stable. Patient is afebrile. The abdomen is benign. Fundus is firm below the umbilicus and nontender. Extremities show no clubbing cyanosis. There is no Homans' sign. Assessment and plan Postoperative day #2 status post repeat delivery at 36 weeks gestation. Patient will be discharged home with follow-up in clinic Final Diagnosis 36-week repeat delivery KI MCCLAIN MD Feb 14, 2022 09:52
[2022-02-14 11:14] VITALS: BP 130/71
== END 2022-02-14 11:15 | disposition home or self-care (01) | DRG 786 ==
LOC: WSo 11:55 → LDRP 11:55 → WSo 14:10 → LDRP 14:11
PROVIDERS: ADMIT Obstetrics & Gynecology; ATTEND Obstetrics & Gynecology
PROC: 10D00Z1 Extraction of Products of Conception, Low, Open Approach (ICD-10-PCS; principal; 2022-02-13)
DX: O34.211 Maternal care for low transverse scar from previous cesarean delivery (principal); O60.14X0 Preterm labor third trimester with preterm delivery third trimester, not applicable or unspecified; Z3A.36 36 weeks gestation of pregnancy; Z37.0 Single live birth
CPT/HCPCS: 36415; 80053; 81000; 83033; 85007; 85027; 86850; 86900; 86901; 87088; 94664; 99212

== ENCOUNTER 2022-05-29 10:09 | Emergency (ER) | payer MEDICAID ==
[~2022-05-29 10:09] MED LIST changes: +DOCU100C37 PO
--- NOTE | 2022-05-29 10:26 | ED Cough/URI ---
General Chief Complaint: Cough/Cold/Flu Symptoms Stated Complaint: FEVER | HEADACHE | Nursing Triage Note: PT AMB TO RM 8 WITH C/O APONTE SINCE THIS MORNING WITH CHEST PRESSURE THAT RADIATES TO HER BACK. PT DENIES TAKING ANY MEDICATION TODAY History of Present Illness Date Seen by Provider: May 29, 2022 Time Seen by Provider: 10:25 Initial Comments 22-year-old female with no significant past medical history is here with complaints of chest pressure when she presses on her sternum, and she feels it somewhat radiates to her back sometimes. In the ER she denies headache. Symptoms began today morning. Patient reported her headache beginning last night but is not present at this time. Denies fever, URI symptoms, nausea and vomiting, chest pain, shortness of breath, neck pain or stiffness, diarrhea, cough. Allergies and Home Medications Allergies Coded Allergies: cefdinir (Verified Allergy, Intermediate, HIVES, 12/04/21) Patient Home Medication List Home Medication List Reviewed: Yes Docusate Sodium (Docusate Sodium) 100 Mg Capsule, 100 MG PO BID Prescribed by: KI REES on 02/12/22 144 Ibuprofen (Ibuprofen) 800 Mg Tablet, 800 MG PO Q6H Prescribed by: KI REES on 02/12/22 1442 Oxycodone HCl/Acetaminophen (Percocet 10-325 mg Tablet) 1 Each Tablet, 1 TAB PO Q4H PRN for PAIN-MODERATE (5-7) Prescribed by: KI REES on 02/12/22 1443 Vit/Iron Fumarate/FA ( Vitamins Tablet) 28 Mg Iron-800 Mcg Tablet, 1 EACH PO DAILY, (Reported) Entered as Reported by: OTIS PRATT on 11/01/21 1124 Review of Systems Review of Systems Constitutional: no symptoms reported EENTM: no symptoms reported Respiratory: no symptoms reported Cardiovascular: other Gastrointestinal: no symptoms reported Genitourinary: no symptoms reported Musculoskeletal: no symptoms reported Skin: no symptoms reported Psychiatric/Neurological: No Symptoms Reported Hematologic/Lymphatic: No Symptoms Reported Immunological/Allergic: no symptoms reported Past Kocubfa-Rpjltk-Zifmkv Hx Patient Social History Tobacco Use?: No Use of E-Cig and/or Vaping dev: No Substance use?: No Alcohol Use?: No Pt feels they are or have been: No Immunizations Up To Date PED Vaccines UTD: Yes Influenza Vaccine Up-to-Date: Yes; Up-to-Date First/Initial COVID19 Vaccinat: no Second COVID19 Vaccination Panchito: no Third COVID19 Vaccination Date: no Seasonal Allergies Seasonal Allergies: No Past Medical History Surgery/Hospitalization HX: RIGHT KNEE SCOPEC-section 05/2019, [facility] Surgeries: Yes Adenoidectomy, Bladder Surgery, Section, Gallbladder, Orthopedic, Tons illectomy Respiratory: No Cardiac: No Neurological: No Reproductive Disorders: Yes (DUB) Female Reproductive Disorders: Denies, Menstrual Problems, Polycystic Ovarian Dis Sexually Transmitted Disease: No HIV/AIDS: No Genitourinary: No Gastrointestinal: Yes (S/P CHOLECYSTECTOMY) Gall Bladder Disease Musculoskeletal: Yes (RIGHT KNEE SCOPE) Endocrine: No HEENT: Yes (GLASSES; T&A; ADENOIDECTOMY) Loss of Vision: Denies Hearing Impairment: Denies Cancer: No Psychosocial: Yes Depression Integumentary: No Blood Disorders: No Adverse Reaction/Blood Tranf: No (N/A) Family Medical History No Pertinent Family Hx, Heart Disease, DVT/PE PAST SURGICAL HISTORY: -RIGHT KNEE SCOPE - 05/12/19 -HYSTEROSCOPY WITH D&C FOR DUB--01/06/20 -CHILECYSTECTOMY -TONSILLECTOMY/ADENOIDECTOMY -WISDOM TEETH -URETHRAL DILATION X 2 Physical Exam Vital Signs - First Documented 05/29/22 10:16 Temp 36.8 Pulse 60 Resp 16 B/P (MAP) 135/80 (98) Capillary Refill : Height: 5'4.00" Weight: 207lbs. 8.0oz. 94.140219ft; 42.03 BMI Method:Stated General Appearance: WD/WN, no apparent distress HEENT: PERRL/EOMI Neck: non-tender, full range of motion, supple Respiratory: chest non-tender, lungs clear, normal breath sounds Cardiovascular: regular rate, rhythm, no edema, no murmur, other (Reproducible chest wall pain present over the sternum as well as the second third and fourth costochondral junctions on the right and left side) Gastrointestinal: normal bowel sounds, soft Extremities: normal range of motion Neurologic/Psychiatric: alert, normal mood/affect, oriented x 3 Skin: normal color Lymphatic: no adenopathy Progress/Results/Core Measures Suspected Sepsis SIRS Temperature: Pulse: 60 Respiratory Rate: 16 Blood Pressure 135 /80 Mean: 98 Results/Orders Lab Results Laboratory Tests Test 05/29/22 10:29 Range/Units Influenza Type A (RT-PCR) Not Detected Not Detecte Influenza Type B (RT-PCR) Not Detected Not Detecte SARS-CoV-2 RNA (RT-PCR) Not Detected Not Detecte Group A Streptococcus Screen NEGATIVE NEGATIVE My Orders Orders - SHIRA CROOK MD Covid 19 Inhouse Test (05/29/22 10:24) Influenza A And B By Pcr (05/29/22 10:24) Rapid Strep A Screen (05/29/22 10:24) Chest 1 View, Ap/Pa Only (05/29/22 10:26) Vital Signs/I&O 05/29/22 10:16 Temp 36.8 Pulse 60 Resp 16 B/P (MAP) 135/80 (98) Capillary Refill : Blood Pressure Mean: 98 Progress Note : Progress Note 1. ACUTE COSTOCHONDRITIS : - COVID test/ Rapid strep test/ Rapid flu test: negative - CXR: no acute findings -Ruled out for any obvious infectious causes such as COVID, flu, strep, and also did a chest x-ray to make sure she does not have any underlying bronchitis or pneumonia, which was also negative. Patient had reproducible chest wall pain which points her clinical diagnosis of acute costochondritis. Patient's vitals were also stable in the ER. - Advised adequate hydration, ibuprofen as needed pain for the next 7 days -Also advised [id number] Lidoderm patches with ibuprofen if not alleviating the pain adequately -Follow-up with PCP within the next 3 to 7 days -The patient was seen in the ED, and treated appropriately to presentation at a specific point in time. Patient is informed that there is a possibility that disease and illness can evolve and change in acuity rapidly or slowly after patient is discharged from the ER. Precautionary advice given to the patient for immediate return to ER if symptoms worsen or do not resolve, and to seek emergency care sooner rather than later. Pt also advised on the importance of PCP follow up and compliance with management and follow up plan with PCP and/or specialist, as this is part of the management plan. Pt verbally expressed understanding. Diagnostic Imaging Diagonstic Imaging: Xray Plain Films/CT/US/NM/MRI: chest Comments [facility], [facility] [place], [place] NAME: NAVEEN RODRIGUEZ [facility] REC#: [id number] PT STATUS: REG ER : 2000 PHYSICIAN: SHIRA CROOK MD ADMIT DATE: 05/29/22/ER Draft Date of Exam:05/29/22 CHEST 1 VIEW, AP/PA ONLY INDICATION: Chest tightness. Frontal chest obtained at 10:24 a.m. compared to 01/23/2021 FINDINGS: Heart and mediastinal silhouette are normal in appearance. The lungs are clear. There is no pneumothorax or pleural fluid. IMPRESSION: Negative chest. Dictated on workstation # [id number] Dict: 05/29/22 1040 Trans: 05/29/22 1042 [id number] Interpreted by: HARVEY BARRERA MD Electronically signed by: Departure Impression Primary Impression: Acute costochondritis Disposition: HOME, SELF-CARE Condition: Stable Departure-Patient Inst. Referrals: KI MCCLAIN MD (PCP/Family) Primary Care Physician Patient Instructions: Costochondritis, Costochondritis (DC) Add. Discharge Instructions: - Advised adequate hydration, ibuprofen as needed pain for the next 7 days -Also advised [id number] Lidoderm patches with ibuprofen if not alleviating the pain adequately -Follow-up with PCP within the next 3 to 7 days - Patient is informed that there is a possibility that disease and illness can evolve and change in acuity rapidly or slowly after patient is discharged from the ER. Precautionary advice given to the patient for immediate return to ER if symptoms worsen or do not resolve, and to seek emergency care sooner rather than later. Pt also advised on the importance of PCP follow up and compliance with management and follow up plan with PCP and/or specialist, as this is part of the management plan. Pt verbally expressed understanding. Work/School Note: School/Childcare Release Date Seen in the Emergency Department: May 29, 2022 Time Dismissed from Emergency Department: 12:00 Return to School: May 30, 2022 SHIRA CROOK MD May 29, 2022 10:26
--- NOTE | 2022-05-29 10:42 | Diagnostic Imaging Report ---
INDICATION: Chest tightness. Frontal chest obtained at 10:24 a.m. compared to 01/23/2021 FINDINGS: Heart and mediastinal silhouette are normal in appearance. The lungs are clear. There is no pneumothorax or pleural fluid. IMPRESSION: Negative chest. Dictated by: Dictated on workstation # [id number]
[2022-05-29 11:43] VITALS: BP 136/89
== END 2022-05-29 11:43 | disposition home or self-care (01) ==
LOC: EDUNIT# 10:09 → ER 10:12
DX: M94.0 Chondrocostal junction syndrome [Tietze] (principal); Z28.310 Unvaccinated for COVID-19; Z20.822 Contact with and (suspected) exposure to COVID-19
CPT/HCPCS: 71045; 87430; 87636

== ENCOUNTER 2022-12-10 16:38 | Emergency (ER) | payer MEDICAID ==
[2022-12-10] MEDS ORDERED: FAMOTIDINE 20 MG TABLET PO STA (16:49)
--- NOTE | 2022-12-10 16:52 | ED Cardiac General ---
History of Present Illness General Chief Complaint: Chest Pain Stated Complaint: CHEST PAIN Nursing Triage Note: PT AMB TO RM 3 WITH CC OF CHEST PAIN SINCE 0700 THIS AM. PT STATES WAS GETTING HER CHILDREN READY WHEN SHE "PASSEDOUT" FOR APPROX 30SEC AND THE CHEST PAIN BEGAN. DENIES HITTING HEAD. PT SENT FROM [facility]. PT A&OX4 Source: patient, old records Exam Limitations: no limitations History of Present Illness Date Seen by Provider: Dec 10, 2022 Time Seen by Provider: 16:43 Initial Comments 22-year-old female with no pertinent past medical history coming in due to chest pain. Started at 7 AM this morning, constant, unrelenting, center of her chest. Does not radiate really anywhere. Denies any personal cardiac history, no lower extremity swelling or pain, no prior history of DVT or PE, no recent surge ry, no recent long travel, no shortness of breath associated with it, no estrogen use. She was doing sitting with her cat this morning and had a syncopal episode lasting a few seconds, did not hit her head and no headache. She is on the Depo shot and does not have periods. ASA po PLUG WIRER: No Allergies and Home Medications Allergies Coded Allergies: cefdinir (Verified Allergy, Intermediate, HIVES, 12/04/21) Patient Home Medication List Home Medication List Reviewed: Yes Docusate Sodium (Docusate Sodium) 100 Mg Capsule, 100 MG PO BID Prescribed by: KI REES on 02/12/22 1442 Ibuprofen (Ibuprofen) 800 Mg Tablet, 800 MG PO Q6H Prescribed by: KI REES on 02/12/22 1442 Oxycodone HCl/Acetaminophen (Percocet 10-325 mg Tablet) 1 Each Tablet, 1 TAB PO Q4H PRN for PAIN-MODERATE (5-7) Prescribed by: KI REES on 02/12/22 1443 Vit/Iron Fumarate/FA ( Vitamins Tablet) 28 Mg Iron-800 Mcg Tablet, 1 EACH PO DAILY, (Reported) Entered as Reported by: OTIS PRATT on 11/01/21 1124 Review of Systems Review of Systems Constitutional: No fever EENTM: No Symptoms Reported Respiratory: No Symptoms Reported Cardiovascular: See HPI Gastrointestinal: No Symptoms Reported Genitourinary: No Symptoms Reported Musculoskeletal: no symptoms reported Skin: no symptoms reported Psychiatric/Neurological: No Symptoms Reported Past Sicypik-Ikmxuc-Ueujnk Hx Patient Social History Tobacco Use?: No Substance use?: No Alcohol Use?: No Pt feels they are or have been: No Immunizations Up To Date PED Vaccines UTD: Yes First/Initial COVID19 Vaccinat: no Second COVID19 Vaccination Panchito: no Third COVID19 Vaccination Date: no Seasonal Allergies Seasonal Allergies: No Past Medical History Surgery/Hospitalization HX: RIGHT KNEE SCOPEC-section 05/2019, [facility] Surgeries: Yes Adenoidectomy, Bladder Surgery, Section, Gallbladder, Orthopedic, Tonsillectomy Respiratory: No Cardiac: No Neurological: No Reproductive Disorders: Yes (DUB) Female Reproductive Disorders: Denies, Menstrual Problems, Polycystic Ovarian Dis Sexually Transmitted Disease: No HIV/AIDS: No Genitourinary: No Gastrointestinal: Yes (S/P CHOLECYSTECTOMY) Gall Bladder Disease Musculoskeletal: Yes (RIGHT KNEE SCOPE) Endocrine: No HEENT: Yes (GLASSES; T&A; ADENOIDECTOMY) Loss of Vision: Denies Hearing Impairment: Denies Cancer: No Psychosocial: Yes Depression Integumentary: No Blood Disorders: No Adverse Reaction/Blood Tranf: No (N/A) Family Medical History No Pertinent Family Hx, Heart Disease, DVT/PE PAST SURGICAL HISTORY: -RIGHT KNEE SCOPE - 05/12/19 -HYSTEROSCOPY WITH D&C FOR DUB--01/06/20 -CHILECYSTECTOMY -TONSILLECTOMY/ADENOIDECTOMY -WISDOM TEETH -URETHRAL DILATION X 2 Physical Exam Vital Signs Vital Signs - First Documented 12/10/22 16:39 Pulse 72 Resp 18 B/P (MAP) 127/85 (99) Pulse Ox 100 O2 Delivery Room Air Capillary Refill : Less Than 3 Seconds Height, Weight, BMI Height: 5'4.00" Weight: 207lbs. 8.0oz. 94.242446uw; 42.03 BMI Method:Stated General Appearance: No Apparent Distress, WD/WN HEENT: PERRL/EOMI, Normal ENT Inspection, Pharynx Normal Neck: Full Range of Motion, Normal Inspection, Non Tender, Supple Respiratory: Chest Non Tender, Lungs Clear, Normal Breath Sounds, No Accessory Muscle Use, No Respiratory Distress Cardiovascular: Regular Rate, Rhythm, No Edema, Normal Peripheral Pulses Gastrointestinal: Normal Bowel Sounds, Non Tender, Soft; No Distended, No Guarding Extremity: Normal Capillary Refill, Normal Inspection, Normal Range of Motion, Non Tender Neurologic/Psychiatric: Alert, Oriented x3, No Motor/Sensory Deficits, Normal Mood/Affect Skin: Normal Color, Warm/Dry Progress/Results/Core Measures Results/Orders Lab Results Laboratory Tests Test 12/10/22 17:07 Range/Units White Blood Count 8.8 4.3-11.0 10^3/uL Red Blood Count 4.81 3.80-5.11 10^6/uL Hemoglobin 13.8 11.5-16.0 g/dL Hematocrit 43 35-52 % Mean Corpuscular Volume 89 80-99 fL Mean Corpuscular Hemoglobin 29 25-34 pg Mean Corpuscular Hemoglobin Concent 32 32-36 g/dL Red Cell Distribution Width 14.6 H 10.0-14.5 % Platelet Count 346 130-400 10^3/uL Mean Platelet Volume 8.5 L 9.0-12.2 fL Immature Granulocyte % (Auto) 2 % Neutrophils (%) (Auto) 53 42-75 % Lymphocytes (%) (Auto) 37 12-44 % Monocytes (%) (Auto) 7 0-12 % Eosinophils (%) (Auto) 2 0-10 % Basophils (%) (Auto) 0 0-10 % Neutrophils # (Auto) 4.7 1.8-7.8 10^3/uL Lymphocytes # (Auto) 3.3 1.0-4.0 10^3/uL Monocytes # (Auto) 0.6 0.0-1.0 10^3/uL Eosinophils # (Auto) 0.1 0.0-0.3 10^3/uL Basophils # (Auto) 0.0 0.0-0.1 10^3/uL Immature Granulocyte # (Auto) 0.1 0.0-0.1 10^3/uL Sodium Level 141 135-145 MMOL/L Potassium Level 4.0 3.6-5.0 MMOL/L Chloride Level 108 H 98-107 MMOL/L Carbon Dioxide Level 23 21-32 MMOL/L Anion Gap 10 5-14 MMOL/L Blood Urea Nitrogen 10 7-18 MG/DL Creatinine 0.79 0.60-1.30 MG/DL Estimat Glomerular Filtration Rate 108 BUN/Creatinine Ratio 13 Glucose Level 96 70-105 MG/DL Calcium Level 9.5 8.5-10.1 MG/DL Corrected Calcium 9.1 8.5-10.1 MG/DL Magnesium Level 2.1 1.6-2.4 MG/DL Total Bilirubin 0.2 0.1-1.0 MG/DL Aspartate Amino Transf (AST/SGOT) 13 5-34 U/L Alanine Aminotransferase (ALT/SGPT) 14 0-55 U/L Alkaline Phosphatase 82 40-136 U/L Troponin I < 0.028 <0.028 NG/ML Total Protein 7.7 6.4-8.2 GM/DL Albumin 4.5 3.2-4.5 GM/DL Lipase 52 8-78 U/L My Orders Orders - MALDONADO SINGH MD Ekg Tracing (12/10/22 16:40) Cbc With Automated Diff (12/10/22 16:49) Magnesium (12/10/22 16:49) Chest 1 View, Ap/Pa Only (12/10/22 16:49) Ekg Tracing (12/10/22 16:49) Comprehensive Metabolic Panel (12/10/22 16:49) O2 (12/10/22 16:49) Monitor-Rhythm Ecg Trace Only (12/10/22 16:49) Ed Iv/Invasive Line Start (12/10/22 16:49) Lipase (12/10/22 16:49) Troponin I Dante (12/10/22 16:49) Ketorolac Injection (Ketorolac Injection (12/10/22 17:00) Famotidine Tablet (Famotidine Tablet) (12/10/22 16:49) Antacid Suspension (Mylanta Suspension (12/10/22 17:00) Medications Given in ED Current Medications Medications Dose Ordered Sig/Hermelinda Route Start Time Stop Time Status Last Admin Dose Admin Al Hydrox/Mg Hydrox/Simethicone 30 ml ONCE ONCE PO 12/10/22 17:00 12/10/22 17:01 DC 12/10/22 17:14 30 ML Ketorolac Tromethamine 15 mg ONCE ONCE IVP 12/10/22 17:00 12/10/22 17:01 DC 12/10/22 17:12 15 MG Vital Signs/I&O 12/10/22 16:39 Pulse 72 Resp 18 B/P (MAP) 127/85 (99) Pulse Ox 100 O2 Delivery Room Air Blood Pressure Mean: 99 Progress Progress Note : Progress Note 22-year-old female with above history coming in due to chest pain. ABCs were intact and vitals were stable on presentation. Physical exam reassuring with no clinical signs of DVT specifically. EKG ordered and interpreted by me showing no acute ischemic changes. Chest x-ray ordered and interpreted by me showing no pneumothorax, normal cardiac silhouette, no obvious pneumonia. An IV was placed by me with ultrasound guidance, basic labs obtained including cardiac biomarkers. Troponin negative, creatinine normal, white blood cell count unremarkable. Clinically not consistent with ACS given age and lack of risk factors. She is low risk for PE per [place] criteria and is PERC negative. Regards to her syncope, she is also low risk per [place] syncope rule, very unlikely that this is clinically significant. Patient is overall well- appearing and I believe stable for discharge with outpatient follow-up. She was sent home with strict return precautions Initial ECG Impression Date: Dec 10, 2022 Initial ECG Impression Time: 16:45 Initial ECG Rate: 63 Initial ECG Rhythm: Normal Sinus Comment Narrow QRS, normal axis, no significant ST changes or T wave abnormality Diagnostic Imaging Diagonstic Imaging: Xray (chest) Comments [facility]. [place], [place] NAME: JENNIFERNAVEEN [facility] REC#: [id number] PT STATUS: REG ER : 2000 PHYSICIAN: MALDONADO SINGH MD ADMIT DATE: 12/10/22/ER Signed Date of Exam:12/10/22 CHEST 1 VIEW, AP/PA ONLY INDICATION: Chest pain COMPARISON: 05/29/2022 FINDINGS: Single frontal view of the chest demonstrates normal heart size and pulmonary vascularity. The lungs are well aerated and clear. No large pleural effusion or pneumothorax is seen. The visualized osseous structures show no acute abnormalities. IMPRESSION: 1. No acute cardiopulmonary process. Dictated by: Dictated on workstation # [id number] Dict: 12/10/22 1659 Trans: 12/10/22 1704 CVB [id number] Interpreted by: JHONATAN INTERIANO MD Electronically signed by: JHONATAN INTERIANO MD 12/10/22 1704 Departure Impression Primary Impression: Chest pain Qualified Codes: R07.2 - Precordial pain Additional Impression: Syncope Qualified Codes: R55 - Syncope and collapse Disposition: 01 HOME, SELF-CARE Condition: Stable Departure-Patient Inst. Decision time for Depature: 17:50 Referrals: SASCHA JENNINGS APRN (PCP/Family) Primary Care Physician Patient Instructions: Fainting, Adult ED, Chest Pain (DC) Add. Discharge Instructions: Based on our evaluation in the ER, it does not appear like you are having any life-threatening causes of your chest pain at this time. We do recommend following up with your regular doctor and seeing if they would like you to be evaluated by a director of leadership development in the near future. You can take normal things such as ibuprofen and Tylenol as needed for pain. Work/School Note: Work Release Form Date Seen in the Emergency Department: Dec 10, 2022 Return to Work: Dec 11, 2022 Restrictions: No Restrictions MALDONADO SINGH MD Dec 10, 2022 16:52
[2022-12-10] MEDS ORDERED: KETOROLAC INJ 30 MG/ML VIAL IVP ONE (17:00)
[2022-12-10] MEDS ORDERED: ANTACID SUSP 30 ML UDC (MYLANTA) PO ONE (17:00)
--- NOTE | 2022-12-10 17:01 | Diagnostic Imaging Report ---
INDICATION: Chest pain COMPARISON: 05/29/2022 FINDINGS: Single frontal view of the chest demonstrates normal heart size and pulmonary vascularity. The lungs are well aerated and clear. No large pleural effusion or pneumothorax is seen. The visualized osseous structures show no acute abnormalities. IMPRESSION: 1. No acute cardiopulmonary process. Dictated by: Dictated on workstation # [id number]
[2022-12-10 17:16] LABS: BASOPHILS % (AUTO) 0 % (0-10); EOSINOPHILS # (AUTO) 0.1 10^3/uL (0.0-0.3); EOSINOPHILS % (AUTO) 2 % (0-10); HEMATOCRIT 43 % (35-52); HEMOGLOBIN 13.8 g/dL (11.5-16.0); LYMPHOCYTES # (AUTO) 3.3 10^3/uL (1.0-4.0); LYMPHOCYTES % (AUTO) 37 % (12-44); MEAN CORPUSCULAR HEMOGLOBIN 29 pg (25-34); MEAN CORPUSCULAR HGB CONC 32 g/dL (32-36); MEAN CORPUSCULAR VOLUME 89 fL (80-99); MEAN PLATELET VOLUME 8.5 fL (9.0-12.2); MONOCYTES # (AUTO) 0.6 10^3/uL (0.0-1.0); MONOCYTES % (AUTO) 7 % (0-12); NEUTROPHILS # (AUTO) 4.7 10^3/uL (1.8-7.8); NEUTROPHILS % (AUTO) 53 % (42-75); PLATELET COUNT 346 10^3/uL (130-400); WHITE BLOOD COUNT 8.8 10^3/uL (4.3-11.0)
[2022-12-10 17:28] LABS: ALBUMIN 4.5 GM/DL (3.2-4.5); CHLORIDE 108 MMOL/L (98-107); SODIUM 141 MMOL/L (135-145)
[2022-12-10 17:29] LABS: CALCIUM 9.5 MG/DL (8.5-10.1)
[2022-12-10 17:30] LABS: GLUCOSE 96 MG/DL (70-105)
[2022-12-10 17:31] LABS: TOTAL PROTEIN 7.7 GM/DL (6.4-8.2)
[2022-12-10 17:32] LABS: BILIRUBIN,TOTAL 0.2 MG/DL (0.1-1.0); CARBON DIOXIDE 23 MMOL/L (21-32)
[2022-12-10 17:34] LABS: ALKALINE PHOSPHATASE 82 U/L (40-136); CREATININE SERUM 0.79 MG/DL (0.60-1.30); GFR ESTIMATED 108
[2022-12-10 17:35] LABS: BUN/CREATININE RATIO 13
[2022-12-10 17:37] LABS: ALANINE AMINOTRANSFERASE 14 U/L (0-55); MAGNESIUM 2.1 MG/DL (1.6-2.4)
[2022-12-10 17:38] LABS: LIPASE 52 U/L (8-78)
[2022-12-10 18:00] VITALS: BP 128/63
== END 2022-12-10 17:25 | disposition other institution (70) ==
LOC: EDUNIT# 16:38 → ER 16:39
DX: R07.9 Chest pain, unspecified (principal); R55 Syncope and collapse; Z28.310 Unvaccinated for COVID-19
CPT/HCPCS: 36415; 71045; 80053; 83690; 83735; 84484; 85025; 93005; 93041